=== PATIENT | male | born 1950 | race Caucasian/White ===

== ENCOUNTER 2021-08-09 15:47 | Inpatient (IN) ==
[2021-08-09] MEDS ORDERED: levoFLOXacin/D5W 750 MG/150 ML BAG IV STA (16:08)
[2021-08-09] MEDS ORDERED: SODIUM CHLORIDE 0.9% 1000ML 1,000 ML IV SCH ×2 (16:15→19:15)
--- NOTE | 2021-08-09 16:21 | Emergency Department Note ---
Impression & Plan Hypotension, Sepsis, ARF (acute renal failure), Acute confusion, Acute UTI, Bladder rupture, Osteomyelitis of left hip ED Provider Note NAME: GILBERT GARCIA AGE: 70 SEX: M : 1950 ARRIVES VIA: Ambulance INFORMANT: [Patient][family] ED PROVIDER(S): [Pierce Marin MD] CHIEF COMPLAINT: Lethargic HISTORY OF PRESENT ILLNESS: The patient is a 70-year-old male who presents to the ER with lethargy. The patient has been running a low blood pressure lately. The patient has fallen a few times but did not seem injured. The patient has been having increased pain in his left hip and the [facility] is considering placing him in a wheelchair. He did go for this appointment. His daughter states that the patient has an increased pain in the left hip [facility]. He has not eaten much, he has not had much to drink. He has been urinating quite frequently and sometimes, just a bit at a time. In the last 24 hours, he has been less responsive and seems groggy. He seemed thirsty. His mucous members are dry. He seemed to be having a harder time breathing. As the day progressed, the patient did not improve, the patient's daughter called EMS. The patient is vaccinated for COVID-19 x3, he has had a flu vaccine. He has chronic kidney disease. He has a chronic deformity to the right upper extremity. The patient is to be a DNR. Given the patient's confusion, no further history obtainable. REVIEW OF SYSTEMS: Unobtainable given the confusion and lethargy. PMHx/PSHx: See Below SOCIAL HISTORY: See Below. PHYSICAL EXAM: GENERAL: Patient is in significant distress. HEENT: No acute trauma, normocephalic atraumatic, mucous membranes markedly dry, no nasal congestion, no scleral icterus. There is dark blood dried on his lips. No obvious laceration. NECK: No stridor, no adenopathy, no meningismus, trachea is midline. LUNGS: Clear to auscultation bilaterally, no wheeze, no rhonchi, breath sounds equal. He appears to be in some mild to moderate respiratory distress. He has an increased respiratory rate. HEART: Without murmurs gallops or rubs, tachycardic, regular rhythm. Heart tones are distant. ABDOMEN: Soft, nontender, no hernias, no peritonitis. EXTREMITIES: No cyanosis, mild bilateral pedal edema. There is a chronic de formity to the right upper extremity with atrophy. NEUROLOGIC: Confused, lethargic, does move all extremities. SKIN: No jaundice, no diaphoresis. There is some mottling across the abdominal wall. DIFFERENTIAL DIAGNOSIS: Sepsis, UTI, pneumonia, renal or liver failure, COVID-19, influenza, metabolic abnormality, electrolyte abnormalities, cardiac sources, cellulitis, bacteremia, intracerebral event, toxicologic etiology, neurologic event, as well as other pathologies. EMERGENCY DEPARTMENT COURSE/PROCEDURES: ECG: Indication was lethargy and confusion. The ECG shows a sinus tachycardia with a rate of 129. There is no ST elevation, no PVCs. QTC is 433. Continuous Cardiac Monitoring: An order was placed for continuous cardiac monitoring. The monitor shows a rate of 113 with sinus tachycardia. Critical Care Note: I have personally spent 61 minutes of critical care time in the direct management of this patient. This includes bedside care, interpretation of diagnostic studies, and testing, discussion with consultants, patient, and family members, and other required patient management activities. This 61 minutes is in excess of all separately billable procedures. MEDICAL DECISION MAKING: There is a moderate leukocytosis consistent with infection. The patient is anemic. He has a history of anemia but his hemoglobin today is below his typ ical values. Platelet count is normal. INR is elevated at 1.3. PTT are is elevated at 2. ABG shows an acidosis with some mild CO2 retention. The bicarb was normal. Renal panel testing shows hyponatremia with a mild hyperkalemia. Acute renal failure was seen with a creatinine of 2.61. Lactic acid level is elevated consistent with infection/dehydration. LFTs were elevated consistent with possible shock liver. ECG showed a sinus tachycardia, no ischemia. Cardiac enzyme testing x1 is not consistent with acute cardiac injury. Procalcitonin level was quite elevated consistent with infection. Urinalysis showed blood and white cells consistent with infection. 4+ bacteria was seen. Covid, influenza and RSV testing returned negative. Chest x-ray did not show any obvious pneumonia or CHF. Brain CT showed no acute bleed or mass-effect. Abdominal and pelvis CT shows osteomyelitis with potential necrotizing fasciitis of the left hip. There was also air within the bladder and around the bladder consistent with bladder rupture. There was some hydronephrosis of the left kidney from a stone within the left renal pelvis. The patient was aggressively managed upon presentation. He was hypotensive on arrival, he was confused. He received 3 L of IV saline, 3 IVs were initiated. He received IV Protonix, IV Levaquin. The patient's blood pressure is somewhat improved. He is still confused. I spoke with the patient's daughter, the patient is a DNR. He is not to be intubated, comfort measures were of primary concern. I did speak with the case management team, I did speak with the on-call hospitalist. With the findings of potential necrotizing fasciitis and osteomyelitis of left hip, I consulted orthopedics. They felt the patient would need transfer if aggressive measures were to be undertaken. I did speak with urology regarding the potential bladder rupture and air within and around the bladder, they recommended a cystogram, the cystogram was ordered. The patient is in critical condition. He has sepsis, hypotension, acute renal failure. He may have a necrotizing fasciitis/osteomyelitis of left hip. He appears to have a bladder rupture. He likely will not survive this infection/hospitalization. The patient's daughter and family are considering whether or not they would want the patient transferred. Transfer was suggested by our consultants if aggre ssive measures were to be undertaken. 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 Hypertension Hypothyroidism Kidney stone states he has 2 stones and monitoring them Osteoarthritis Sleep apnea CPAP with oxygen- 3 liters Surgical History History of carpal tunnel surgery of left wrist History of esophagogastroduodenoscopy (EGD) History of excision of pilonidal cyst History of open reduction and internal fixation (ORIF) procedure right arm due to accident and only has partial movement arm/hand Hx of arthroscopy of left knee Hx of cholecystectomy Hx of cystoscopy laser litho and basket retrieval Hx of lithotripsy Social History Smoking Status: Former smoker Second Hand Exposure: No; Hx Alcohol Use: Yes Alcohol type: beer and hard liquor Hx Substance Use: No Preferred Language: Ivorian Communication Ability: Effective Tool Adjuster Required: No Beliefs That Will Affect Care: None Current Living Situation: Alone Feels Safe at Home: Yes Assistive Devices: Cane, CPAP, Denture - Upper, Glasses and Walker Allergies Allergies Allergy/AdvReac Type Severity Reaction Status Date / Time amoxicillin Allergy Intermediate Hives Verified 08/09/21 17:44 Penicillins Allergy Intermediate HIVES;RASH,THROAT Verified 08/09/21 17:44 SWELLING Home Meds Home Medications Medication Instructions Recorded Confirmed albuterol sulfate 90 mcg/actuation 2 puff INHALATION .Q4-6HR PRN 01/31/21 08/09/21 aerosol inhaler (Ventolin HFA) allopurinol 100 mg tablet 100 mg PO BID 01/31/21 08/09/21 aspirin 81 mg tablet,delayed 81 mg PO QAM 01/31/21 08/09/21 release cholecalciferol (vitamin D3) 25 25 mcg PO Q2D 01/31/21 08/09/21 mcg (1,000 unit) capsule (Vitamin D3) levothyroxine 75 mcg tablet 75 mcg PO QAM 01/31/21 08/09/21 lisinopril 20 mg tablet 20 mg PO QAM 01/31/21 08/09/21 metformin 500 mg tablet 500 mg PO QAM 01/31/21 08/09/21 tiotropium bromide 18 mcg capsule 1 cap INHALATION QAM 01/31/21 08/09/21 with inhalation device (Spiriva with HandiHaler) fluticasone 100 mcg-salmeterol 50 1 inh INHALATION BID 06/05/21 08/09/21 mcg/dose blistr powdr for inhalation (Wixela Inhub) furosemide 40 mg tablet 40 mg PO QAM 06/05/21 08/09/21 folic acid 800 mcg tablet 0.8 mg PO DAILY 08/09/21 08/09/21 omeprazole 20 mg capsule,delayed 20 mg PO DAILY 08/09/21 08/09/21 release pravastatin 40 mg tablet 20 mg PO DAILY 08/09/21 08/09/21 zinc 50 mg tablet 50 mg PO DAILY 08/09/21 08/09/21 Previous Rx's Medication Instructions Recorded hydrocodone 5 mg-acetaminophen 325 1 - 2 tab PO Q6H PRN #30 tab 06/11/21 mg tablet Results & Data (ED) Vital Signs Vital Signs - 24 hr 08/09/21 15:47 08/09/21 16:05 08/09/21 16:08 Temperature 37.8 C H Temperature Source Oral Pulse Rate 128 H 129 H Pulse Rate from SpO2 Sensor 129 H Pulse Rhythm Regular Respiratory Rate 22 26 H Respiratory Effort / Characteristics Non-Labored Spontaneous Respiratory Depth Normal Respiratory Pattern Regular Blood Pressure 68/39 L 67/42 L Blood Pressure Mean 48 50 Pulse Oximetry 76 L 97 99 Oxygen Delivery Method Room Air Nasal Cannula Nasal Cannula Oxygen Flow Rate 6 6 Sepsis Recent Fever Within 48 Hours No Sepsis New/Unexplained Change in Mental Status Yes Sepsis Action Taken by Nursing Physician Notified 08/09/21 16:23 08/09/21 16:28 08/09/21 16:30 Temperature Temperature Source Pulse Rate 128 H 126 H 127 H Pulse Rate from SpO2 Sensor 126 H 129 H Pulse Rhythm Respiratory Rate 17 32 H 34 H Respiratory Effort / Characteristics Respiratory Depth Respiratory Pattern Blood Pressure 84/53 L 92/56 L 81/53 L Blood Pressure Mean 63 68 62 Pulse Oximetry 99 95 Oxygen Delivery Method Oxygen Flow Rate Sepsis Recent Fever Within 48 Hours Sepsis New/Unexplained Change in Mental Status Sepsis Action Taken by Nursing 08/09/21 16:38 08/09/21 16:45 08/09/21 17:00 Temperature Temperature Source Pulse Rate 122 H 126 H Pulse Rate from SpO2 Sensor 122 H 126 H Pulse Rhythm Respiratory Rate 22 34 H 20 Respiratory Effort / Characteristics Spontaneous Respiratory Depth Respiratory Pattern Blood Pressure 84/49 L 74/42 L Blood Pressure Mean 60 52 Pulse Oximetry 99 100 100 Oxygen Delivery Method Nasal Cannula Oxygen Flow Rate 5 Sepsis Recent Fever Within 48 Hours Sepsis New/Unexplained Change in Mental Status Sepsis Action Taken by Nursing 08/09/21 17:08 08/09/21 17:13 08/09/21 17:16 Temperature Temperature Source Pulse Rate 122 H Pulse Rate from SpO2 Sensor 119 H 123 H Pulse Rhythm Respiratory Rate 22 32 H Respiratory Effort / Characteristics Spontaneous Respiratory Depth Respiratory Pattern Blood Pressure 76/51 L 75/42 L Blood Pressure Mean 59 53 Pulse Oximetry 99 99 99 Oxygen Delivery Method Nasal Cannula Oxygen Flow Rate 5 Sepsis Recent Fever Within 48 Hours Sepsis New/Unexplained Change in Mental Status Sepsis Action Taken by Nursing 08/09/21 17:38 08/09/21 18:00 01/01/22 18:30 Temperature Temperature Source Pulse Rate 123 H 123 H Pulse Rate from SpO2 Sensor 122 H 119 H Pulse Rhythm Respiratory Rate 25 H 25 H 34 H Respiratory Effort / Characteristics Spontaneous Spontaneous Spontaneous Respiratory Depth Respiratory Pattern Blood Pressure 106/50 L 84/56 L Blood Pressure Mean 68 65 Pulse Oximetry 100 99 96 Oxygen Delivery Method Nasal Cannula Nasal Cannula Nasal Cannula Oxygen Flow Rate 4 4 4 Sepsis Recent Fever Within 48 Hours Sepsis New/Unexplained Change in Mental Status Sepsis Action Taken by Assisted Medications Current Medication List: was personally reviewed by me Laboratory Data Attestation: I reviewed the patient's lab results. Result diagrams: 08/09/21 16:23 08/09/21 16:23 Lab Results 08/09/21 08/09/21 08/09/21 Range/Units 16:20 16:23 16:23 WBC 18.71 H (4.8-10.8) K/uL RBC 3.51 L (4.7-6.1) M/uL Hgb 10.5 L (14.0-18.0) g/dL Hct 32.2 L (42-52) % MCV 91.7 (80-100) fL MCH 29.9 (25-34) pg MCHC 32.6 (32-36) g/dL RDW Std Deviation 50.6 H (36.4-46.3) fL RDW Coeff of [place]en[place] 15.0 H (11.5-14.5) % Plt Count 151 (130-400) K/uL MPV 11.5 H (7.4-10.4) fL Immature Gran % (Auto) 0.3 % Neut % (Auto) 87.5 % Lymph % (Auto) 5.8 % [place] % (Auto) 6.3 % Eos % (Auto) 0.0 % Baso % (Auto) 0.1 % Neut # (Auto) 16.38 H (1.4-6.5) K/uL Lymph # (Auto) 1.08 L (1.2-3.4) K/uL [place] # (Auto) 1.18 H (0.11-0.59) K/uL Eos # (Auto) 0.00 (0-0.5) K/uL Baso # (Auto) 0.01 (0-0.2) K/uL Immature Gran # (Auto) 0.06 H (0.00-0.02) K/uL PT 12.5 H (9.0-12.0) Seconds INR 1.3 H (0.9-1.1) APTT 53.6 H* (21.0-31.0) Seconds PTT Ratio 2.0 ABG pH (7.35-7.45) ABG pCO2 (35-46) mmHg ABG pO2 (80-95) mmHg ABG HCO3 (19-24) mmol/L ABG O2 Saturation (90-95) % ABG Base Excess (-9-1.8) mEq/L Christopher Test (Pos) Barometric Pressure mm/Hg Oxygen Given Sodium (136-145) mmol/L Potassium (3.5-5.1) mmol/L Chloride (98-107) mmol/L Carbon Dioxide (21-32) mmol/L Anion Gap (3-11) BUN (7-18) mg/dl Creatinine (0.6-1.4) mg/dl Est Cr Clr Drug Dosing ml/min Est GFR ( Amer) ml/min Est GFR (Non-Af Amer) ml/min BUN/Creatinine Ratio (10-20) Glucose (70-99) mg/dl Lactate (0.4-2.0) mmol/L Calcium (8.5-10.1) mg/dl Magnesium (1.8-2.4) mg/dl Total Bilirubin (0.2-1) mg/dl AST (15-37) U/L ALT (12-78) Alkaline Phosphatase (45-117) U/L Troponin I (0-0.045) ng/ml Total Protein (6.4-8.2) gm/dl Albumin (3.4-5.0) gm/dl Globulin (2.5-4.0) gm/dl Albumin/Globulin Ratio (0.9-2) Procalcitonin (0-0.5) ng/ml Urine Color Brown Urine Appearance Cloudy A (Clear) Urine pH (4.5-7.5) Ur Specific [place] 1.024 (1.000-1.030) Urine Protein (Negative) Urine Glucose (UA) (Negative) Urine Ketones (Negative) Urine Blood (Negative) Urine Nitrite (Negative) Urine Bilirubin (Negative) Urine Urobilinogen (Negative) Ur Leukocyte Esterase (Negative) Urine RBC >30 H (0-4) /hpf Urine WBC >30 H (0-5) /hpf Ur Epithelial Cells 5-10 H (0-5) /lpf Urine Bacteria 4+ H (Negative) SARS-CoV-2 (PCR) (Negative) Influenza Type A (PCR) (Neg) Influenza Type B (PCR) (Neg) RSV (RT-PCR) (Neg) 08/09/21 08/09/21 08/09/21 Range/Units 16:23 16:23 16:23 WBC (4.8-10.8) K/uL RBC (4.7-6.1) M/uL Hgb (14.0-18.0) g/dL Hct (42-52) % MCV (80-100) fL MCH (25-34) pg MCHC (32-36) g/dL RDW Std Deviation (36.4-46.3) fL RDW Coeff of Keenan (11.5-14.5) % Plt Count (130-400) K/uL MPV (7.4-10.4) fL Immature Gran % (Auto) % Neut % (Auto) % Lymph % (Auto) % [place] % (Auto) % Eos % (Auto) % Baso % (Auto) % Neut # (Auto) (1.4-6.5) K/uL Lymph # (Auto) (1.2-3.4) K/uL [place] # (Auto) (0.11-0.59) K/uL Eos # (Auto) (0-0.5) K/uL Baso # (Auto) (0-0.2) K/uL Immature Gran # (Auto) (0.00-0.02) K/uL PT (9.0-12.0) Seconds INR (0.9-1.1) APTT (21.0-31.0) Seconds PTT Ratio ABG pH (7.35-7.45) ABG pCO2 (35-46) mmHg ABG pO2 (80-95) mmHg ABG HCO3 (19-24) mmol/L ABG O2 Saturation (90-95) % ABG Base Excess (-9-1.8) mEq/L Christopher Test (Pos) Barometric Pressure mm/Hg Oxygen Given Sodium 126 L (136-145) mmol/L Potassium 5.5 H (3.5-5.1) mmol/L Chloride 93 L (98-107) mmol/L Carbon Dioxide 25 (21-32) mmol/L Anion Gap 8.0 (3-11) BUN 62 H (7-18) mg/dl Creatinine 2.61 H (0.6-1.4) mg/dl Est Cr Clr Drug Dosing 28.8 ml/min Est GFR ( Amer) 27.4 ml/min Est GFR (Non-Af Amer) 23.6 ml/min BUN/Creatinine Ratio 23.9 H (10-20) Glucose 113 H (70-99) mg/dl Lactate 2.9 H* (0.4-2.0) mmol/L Calcium 8.9 (8.5-10.1) mg/dl Magnesium 1.8 (1.8-2.4) mg/dl Total Bilirubin 2.8 H (0.2-1) mg/dl AST 174 H (15-37) U/L ALT 36 (12-78) Alkaline Phosphatase 233 H D (45-117) U/L Troponin I < 0.015 (0-0.045) ng/ml Total Protein 6.9 (6.4-8.2) gm/dl Albumin 2.0 L (3.4-5.0) gm/dl Globulin 4.9 H (2.5-4.0) gm/dl Albumin/Globulin Ratio 0.4 L (0.9-2) Procalcitonin 32.78 H (0-0.5) ng/ml Urine Color Urine Appearance (Clear) Urine pH (4.5-7.5) Ur Specific [place] (1.000-1.030) Urine Protein (Negative) Urine Glucose (UA) (Negative) Urine Ketones (Negative) Urine Blood (Negative) Urine Nitrite (Negative) Urine Bilirubin (Negative) Urine Urobilinogen (Negative) Ur Leukocyte Esterase (Negative) Urine RBC (0-4) /hpf Urine WBC (0-5) /hpf Ur Epithelial Cells (0-5) /lpf Urine Bacteria (Negative) SARS-CoV-2 (PCR) (Negative) Influenza Type A (PCR) (Neg) Influenza Type B (PCR) (Neg) RSV (RT-PCR) (Neg) 08/09/21 08/09/21 Range/Units 16:24 19:10 WBC (4.8-10.8) K/uL RBC (4.7-6.1) M/uL Hgb (14.0-18.0) g/dL Hct (42-52) % MCV (80-100) fL MCH (25-34) pg MCHC (32-36) g/dL RDW Std Deviation (36.4-46.3) fL RDW Coeff of Keenan (11.5-14.5) % Plt Count (130-400) K/uL MPV (7.4-10.4) fL Immature Gran % (Auto) % Neut % (Auto) % Lymph % (Auto) % [place] % (Auto) % Eos % (Auto) % Baso % (Auto) % Neut # (Auto) (1.4-6.5) K/uL Lymph # (Auto) (1.2-3.4) K/uL [place] # (Auto) (0.11-0.59) K/uL Eos # (Auto) (0-0.5) K/uL Baso # (Auto) (0-0.2) K/uL Immature Gran # (Auto) (0.00-0.02) K/uL PT (9.0-12.0) Seconds INR (0.9-1.1) APTT (21.0-31.0) Seconds PTT Ratio ABG pH 7.29 L (7.35-7.45) ABG pCO2 47 H (35-46) mmHg ABG pO2 104 H (80-95) mmHg ABG HCO3 22 (19-24) mmol/L ABG O2 Saturation 97.4 H (90-95) % ABG Base Excess -4.6 (-9-1.8) mEq/L Christopher Test Pos (Pos) Barometric Pressure 723.7 mm/Hg Oxygen Given 4.5 L Sodium (136-145) mmol/L Potassium (3.5-5.1) mmol/L Chloride (98-107) mmol/L Carbon Dioxide (21-32) mmol/L Anion Gap (3-11) BUN (7-18) mg/dl Creatinine (0.6-1.4) mg/dl Est Cr Clr Drug Dosing ml/min Est GFR ( Amer) ml/min Est GFR (Non-Af Amer) ml/min BUN/Creatinine Ratio (10-20) Glucose (70-99) mg/dl Lactate (0.4-2.0) mmol/L Calcium (8.5-10.1) mg/dl Magnesium (1.8-2.4) mg/dl Total Bilirubin (0.2-1) mg/dl AST (15-37) U/L ALT (12-78) Alkaline Phosphatase (45-117) U/L Troponin I (0-0.045) ng/ml Total Protein (6.4-8.2) gm/dl Albumin (3.4-5.0) gm/dl Globulin (2.5-4.0) gm/dl Albumin/Globulin Ratio (0.9-2) Procalcitonin (0-0.5) ng/ml Urine Color Urine Appearance (Clear) Urine pH (4.5-7.5) Ur Specific [place] (1.000-1.030) Urine Protein (Negative) Urine Glucose (UA) (Negative) Urine Ketones (Negative) Urine Blood (Negative) Urine Nitrite (Negative) Urine Bilirubin (Negative) Urine Urobilinogen (Negative) Ur Leukocyte Esterase (Negative) Urine RBC (0-4) /hpf Urine WBC (0-5) /hpf Ur Epithelial Cells (0-5) /lpf Urine Bacteria (Negative) SARS-CoV-2 (PCR) NEGATIVE (Negative) Influenza Type A (PCR) Negative (Neg) Influenza Type B (PCR) Negative (Neg) RSV (RT-PCR) Negative (Neg) Administered Medications Discontinued Medications Sodium Chloride (Nss 1000ml) 1,000 mls @ 999 mls/hr IV .Q1H1M SVETLANA Stop: 08/09/21 17:15 Last Infusion: 08/09/21 17:06 Dose: 0 mls/hr Documented by: [id number] Admin: 08/09/21 16:30 Dose: 999 mls/hr Documented by: [id number] Levofloxacin/Dextrose (Levaquin/D5w) 750 mg in 150 mls @ 100 mls/hr IV NOW STA Stop: 08/09/21 17:37 Last Infusion: 08/09/21 18:42 Dose: 0 mls/hr Documented by: [id number] Admin: 08/09/21 16:45 Dose: 100 mls/hr Documented by: [id number] Pantoprazole Sodium 80 mg/ (Dextrose) 100 mls @ 400 mls/hr IV ONE STA Stop: 08/09/21 16:52 Last Infusion: 08/09/21 18:43 Dose: 0 mls/hr Documented by: [id number] Admin: 08/09/21 17:50 Dose: 400 mls/hr Documented by: [id number] Sodium Chloride (Nss 1000ml) 1,000 mls @ 999 mls/hr IV .Q1H1M ONE Stop: 08/09/21 18:00 Last Infusion: 08/09/21 18:43 Dose: 0 mls/hr Documented by: [id number] Admin: 08/09/21 17:06 Dose: 999 mls/hr Documented by: [id number] Sodium Chloride (Nss 1000ml) 1,000 mls @ 999 mls/hr IV .Q1H1M ONE Stop: 08/09/21 18:12 Last Infusion: 08/09/21 18:43 Dose: 0 mls/hr Documented by: [id number] Admin: 08/09/21 17:50 Dose: 999 mls/hr Documented by: [id number] Imaging Data Radiologist's Impression: Abdomen/Pelvis CT 08/09/21 16:[address] WITHOUT CONTRAST CT DOSE: 1425.66 mGy.cm HISTORY: Acute lower abdominal pain status post fall poss urinary obstruction TECHNIQUE: Multiaxial CT images of the abdomen and pelvis were performed without contrast. A dose lowering technique was utilized adhering to the principles of ALARA. COMPARISON STUDY: Chest radiograph of same day FINDINGS: Trace pleural effusions. Mild bibasilar bronchial wall thickening with subsegmental opacities suggestive of probable atelectasis. The study is limited secondary to upper extremity positioning, lack of IV contrast and respiratory motion artifact. The unenhanced spleen is enlarged measuring up to 16.5 cm in length. Unremarkable pancreas and adrenal glands. Cholecystectomy. Marginal nodularity of the liver suggestive of cirrhosis. Calcified granulomata of the right hepatic lobe. Hepatic steatosis. Probable cyst of the superior pole right kidney measures 9 mm. There are a few nonobstructing calculi of the inferior pole right kidney measuring up to 4 mm. 1.6 cm calculus of the left renal pelvis results in mild hydronephrosis. There are a few additional nonobstructing calculi left kidney measuring up to 1.2 cm. Small amount of air is noted within the left renal collecting system and proximal left ureter. A Sim catheter is noted within the urinary bladder which is filled with air. Extraluminal air surrounds the urinary bladder. The tip of the catheter tents the anterior urinary bladder dome. Mild perivesicular stranding is noted in addition to mild prostamegaly. Atherosclerosis of the aorta. No adenopathy. There is also within the left femoral veins. There is no bowel obstruction or bowel wall thickening. Colonic diverticulosis without acute diverticulitis. Normal appendix. 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 Osseous erosions with bony destruction involves the left femoral acetabular joints resolving in associated subluxation. Numerous bone fragments are noted along the superior margin of the left hip with adjacent periostitis. Osseous necrosis is noted with considerable amount of air within the proximal left hip medullary space and also within the medullary space of the left acetabulum extending into the superior and inferior pubic rami and ischium. Periostitis involves the posterior aspect of the left iliac wing with ill-defined cortical lucency of the anterior iliac bone (image [id number]). Deep tissue air is noted within the complex left hip joint effusion extending into the adjacent gluteal and proximal thigh musculature compatible with gas forming organism. Ill-defined sclerosis involves the S1 vertebral segment should be evaluated on follow-up to exclude additional site of osteomyelitis. IMPRESSION: 1. Left hip septic arthropathy with considerable osteomyelitis/bone necrosis of the left acetabulum, left iliac bone and proximal left femur results in articular bony destruction with femoral acetabular subluxation. Additional air within the medullary space of the ischium, superior and inferior pubic rami and partially imaged diaphyseal left femur is suggestive of additional osteonecrosis.Urgent orthopedic surgical consultation is needed. 2. Heterogeneous enlargement with heterogeneity of the left needle loom operator internus, gluteal and proximal left thigh musculature is suggestive of associated myositis and/or myonecrosis. 3. A Sim catheter is in place with an air-filled urinary bladder. A large amount of perivesicular air is compatible with an acute urinary bladder wall injury. 4. Mild left-sided hydronephrosis secondary to a 1.6 cm calculus of the left renal pelvis. 5. Nonobstructing bilateral nephrolithiasis. 6. Cirrhotic liver. 7. Trace pleural effusions. 8. Additional findings as above. ACT 112: Negative or not required by law. The above report was generated using voice recognition software. It may contain grammatical, syntax or spelling errors. Electronically signed by: Doe Atkinson M.D. 08/09/2021 6:09 PM Chest X-Ray 08/09/21 16:08 XR chest 1V portable HISTORY: 70 years-old Male SEPSIS acute sepsis COMPARISON: Chest radiograph 01/31/2021 TECHNIQUE: Portable AP view of the chest FINDINGS: Cardiomediastinal and hilar silhouettes are within normal limits. No pneumo thorax, large pleural effusion or overt pulmonary edema. There are subtle subsegmental opacities of the left lung base. Mild right hemidiaphragmatic elevation. Degenerative changes of the shoulders and spine. Healed chronic right-sided rib fractures. Mild subcutaneous edema of the left clavicular ti ssues with question deep tissue air versus artifact surrounding the right shoulder. IMPRESSION: 1. Mild left lung base opacities may represent atelectasis versus pneumonitis. 2. Trace subcutaneous emphysema of the left supraclavicular tissues with a rtifact versus deep tissue air superior to the right shoulder. Correlate with physical exam findings. ACT 112: Negative or not required by law. The above report was generated using voice recognition software. It may contain grammatical, syntax or spelling errors. Electronically signed by: Doe Atkinson M.D. 08/09/2021 5:[address] 08/09/21 16:08 CT head/brain wo con CLINICAL HISTORY: 70 years-old Male with fall, confusion. Acute head injury status post fall. TECHNIQUE: Multiple axial CT images of the head were obtained without contrast. A dose lowering technique was utilized adhering to the principles of ALARA. CT DOSE: 884.08 mGy.cm COMPARISON: Head CT 02/01/2021 FINDINGS: No acute intracranial hemorrhage, midline shift, intracranial mass, hydrocephalus, territorial ischemia or abnormal extra-axial collection. Mild involutional changes. White matter hypodensities suggest chronic microvascular ischemic disease. The calvarium is intact. The paranasal sinuses, mastoid air cells, and middle ear cavities are clear. IMPRESSION: No acute intracranial abnormality or calvarial fracture. ACT 112: Negative or not required by law. The above report was generated using voice recognition software. It may contain grammatical, syntax or spelling errors. Electronically signed by: Doe Atkinson M.D. 08/09/2021 5:39 PM Discharge Plan Visit Data Chief Complaint: Lethargic ED Provider: Pierce Marin Discharge Problem: Hypotension, Sepsis, ARF (acute renal failure), Acute confusion, Acute UTI, Bladder rupture, Osteomyelitis of left hip Patient Disposition: Admitted As Inpatient Condition: Critical Forms Stand Alone Forms: My [facility] Prescriptions Prescriptions: No Action furosemide 40 mg Tablet 40 mg PO QAM RF: 0 fluticasone propion-salmeterol [Wixela Inhub] 100-50 mcg/dose Blister With Device 1 inh INHALATION BID RF: 0 hydrocodone-acetaminophen 5-325 mg tablet 1 - 2 tab PO Q6H PRN (Reason: pain) Qty: 30 RF: 0 pravastatin 40 mg Tablet 20 mg PO DAILY RF: 0 zinc 50 mg Tablet 50 mg PO DAILY RF: 0 omeprazole 20 mg Capsule,Delayed Release(Dr/Ec) 20 mg PO DAILY RF: 0 folic acid 800 mcg Tablet 0.8 mg PO DAILY RF: 0 metformin 500 mg Tablet 500 mg PO QAM RF: 0 lisinopril 20 mg Tablet 20 mg PO QAM RF: 0 allopurinol 100 mg Tablet 100 mg PO BID RF: 0 aspirin 81 mg Tablet,Delayed Release (Dr/Ec) 81 mg PO QAM RF: 0 levothyroxine 75 mcg Tablet 75 mcg PO QAM RF: 0 albuterol sulfate [Ventolin HFA] 90 mcg/actuation Hfa Aerosol Inhaler 2 puff INHALATION .Q4-6HR PRN (Reason: Wheezing) RF: 0 cholecalciferol (vitamin D3) [Vitamin D3] 25 mcg (1,000 unit) Capsule 25 mcg PO Q2D RF: 0 Spiriva with HandiHaler 18 mcg Capsule, W/Inhalation Device 1 cap INHALATION QAM RF: 0 Referrals Referrals: Jazlyn John MD [Primary Care Provider] - Discharge Problem: Hypotension Qualifiers: Hypotension type: unspecified hypotension type Qualified Code(s): I95.9 - Hypotension, unspecified Sepsis Qualifiers: Sepsis type: sepsis due to unspecified organism Sepsis acute organ dysfunction status: with acute organ dysfunction Severe sepsis acute organ dysfunction type: acute renal failure Acute renal failure type: unspecified Severe sepsis shock status: with septic shock Qualified Code(s): A41.9 - Sepsis, unspecified organism ARF (acute renal failure) Qualifiers: Acute renal failure type: unspecified Qualified Code(s): N17.9 - Acute kidney failure, unspecified
[2021-08-09 16:30] LABS: Hematocrit (blood only) 32.2 % (42-52); Hemoglobin 10.5 g/dL (14.0-18.0); Mean Corpuscular Hemoglobin 29.9 pg (25-34); Mean Corpuscular Hgb Conc 32.6 g/dL (32-36); Mean Corpuscular Volume 91.7 fL (80-100); Mean Platelet Volume 11.5 fL (7.4-10.4); Platelet Count 151 K/uL (130-400); RDW Standard Deviation 50.6 fL (36.4-46.3); Red Blood Count 3.51 M/uL (4.7-6.1); White Blood Count 18.71 K/uL (4.8-10.8)
[2021-08-09] MEDS ORDERED: PANTOprazole 80 MG in DEXTROSE 5% 100 ML IV STA (16:38)
[2021-08-09 16:46] LABS: Basophils # (auto) 0.01 K/uL (0-0.2); Basophils % (auto) 0.1 %; Immature Granulocytes # (auto) 0.06 K/uL (0.00-0.02); Immature Granulocytes % (auto) 0.3 %; Lymphocytes # (auto) 1.08 K/uL (1.2-3.4); Lymphocytes % (auto) 5.8 %; Monocytes # (auto) 1.18 K/uL (0.11-0.59); Monocytes % (auto) 6.3 %; Neutrophils # (auto) 16.38 K/uL (1.4-6.5); Neutrophils % (auto) 87.5 %
[2021-08-09 16:48] LABS: Alanine Aminotransferase 36 (12-78); Aspartate Aminotransferase 174 U/L (15-37); BUN Creatinine Ratio 23.9 (10-20); Blood Urea Nitrogen 62 mg/dl (7-18); Calcium 8.9 mg/dl (8.5-10.1); Carbon Dioxide 25 mmol/L (21-32); Chloride 93 mmol/L (98-107); Creatinine Clr Calc Pharmacy 28.8 ml/min; Est GFR (African American) 27.4 ml/min; Est GFR (Non-African American) 23.6 ml/min; Glucose 113 mg/dl (70-99); Magnesium 1.8 mg/dl (1.8-2.4); Potassium 5.5 mmol/L (3.5-5.1); Sodium 126 mmol/L (136-145)
[2021-08-09 16:52] LABS: INR 1.3 (0.9-1.1); Prothrombin Time 12.5 Seconds (9.0-12.0)
[2021-08-09 16:53] LABS: Albumin Globulin Ratio 0.4 (0.9-2); Alkaline Phosphatase 233 U/L (45-117); Bilirubin,Total 2.8 mg/dl (0.2-1); Globulin 4.9 gm/dl (2.5-4.0); Total Protein 6.9 gm/dl (6.4-8.2); Troponin I < 0.015 ng/ml (0-0.045)
[2021-08-09 16:58] LABS: Partial Thromboplastin Time 53.6 Seconds (21.0-31.0)
[2021-08-09] MEDS ORDERED: SODIUM CHLORIDE 0.9% 1000ML 1,000 ML IV ONE ×2 (17:00→17:12)
--- NOTE | 2021-08-09 17:06 | XRay Report ---
XR chest 1V portable HISTORY: 70 years-old Male SEPSIS acute sepsis COMPARISON: Chest radiograph 01/31/2021 TECHNIQUE: Portable AP view of the chest FINDINGS: Cardiomediastinal and hilar silhouettes are within normal limits. No pneumothorax, large pleural effu royal or overt pulmonary edema. There are subtle subsegmental opacities of the left lung base. Mild ri ght hemidiaphragmatic elevation. Degenerative changes of the shoulders and spine. Healed chronic righ t-sided rib fractures. Mild subcutaneous edema of the left clavicular tissues with question deep tiss ue air versus artifact surrounding the right shoulder. IMPRESSION: 1. Mild left lung base opacities may represent atelectasis versus pneumonitis. 2. Trace subcutaneous emphysema of the left supraclavicular tissues with artifact versus deep tissue air superior to the right shoulder. Correlate with physical exam findings. ACT 112: Negative or not required by law. The above report was generated using voice recognition software. It may contain grammatical, syntax o r spelling errors. Electronically signed by: Doe Atkinson M.D. 08/09/2021 5:04 PM
[2021-08-09 17:13] LABS: Appearance Urine Cloudy (Clear); Color Urine Brown; Specific Gravity Urine 1.024 (1.000-1.030)
[2021-08-09 17:18] LABS: Bacteria Urine 4+ (Negative); RBC Urine >30 /hpf (0-4); WBC Urine >30 /hpf (0-5)
[2021-08-09 17:29] LABS: Influenza A virus by PCR Negative (Neg); Influenza B virus by PCR Negative (Neg); RSV by PCR Negative (Neg); SARS CoV2 RNA(COVID-19) InHosp NEGATIVE (Negative)
--- NOTE | 2021-08-09 17:41 | CT Scan Report ---
CT head/brain wo con CLINICAL HISTORY: 70 years-old Male with fall, confusion. Acute head injury status post fall. TECHNIQUE: Multiple axial CT images of the head were obtained without contrast. A dose lowering tech nique was utilized adhering to the principles of ALARA. CT DOSE: 884.08 mGy.cm COMPARISON: Head CT 02/01/2021 FINDINGS: No acute intracranial hemorrhage, midline shift, intracranial mass, hydrocephalus, territorial ischem ia or abnormal extra-axial collection. Mild involutional changes. White matter hypodensities suggest chronic microvascular ischemic disease. The calvarium is intact. The paranasal sinuses, mastoid air cells, and middle ear cavities are clear . IMPRESSION: No acute intracranial abnormality or calvarial fracture. ACT 112: Negative or not required by law. The above report was generated using voice recognition software. It may contain grammatical, syntax o r spelling errors. Electronically signed by: Doe Atkinson M.D. 08/09/2021 5:39 PM
--- NOTE | 2021-08-09 18:10 | CT Scan Report ---
ABDOMEN AND PELVIS CT WITHOUT CONTRAST CT DOSE: 1425.66 mGy.cm HISTORY: Acute lower abdominal pain status post fall poss urinary obstruction TECHNIQUE: Multiaxial CT images of the abdomen and pelvis were performed without contrast. A dose lo wering technique was utilized adhering to the principles of ALARA. COMPARISON STUDY: Chest radiograph of same day FINDINGS: Trace pleural effusions. Mild bibasilar bronchial wall thickening with subsegmental opaciti es suggestive of probable atelectasis. The study is limited secondary to upper extremity positioning, lack of IV contrast and respiratory motion artifact. The unenhanced spleen is enlarged measuring up to 16.5 cm in length. Unremarkable pancreas and adrenal glands. Cholecystectomy. Marginal nodularity of the liver suggestive of cirrhosis. Calcified granulomata of the right hepatic lobe. Hepatic steato sis. Probable cyst of the superior pole right kidney measures 9 mm. There are a few nonobstructing calculi of the inferior pole right kidney measuring up to 4 mm. 1.6 cm calculus of the left renal pelvis res ults in mild hydronephrosis. There are a few additional nonobstructing calculi left kidney measuring up to 1.2 cm. Small amount of air is noted within the left renal collecting system and proximal left ureter. A Sim catheter is noted within the urinary bladder which is filled with air. Extraluminal a ir surrounds the urinary bladder. The tip of the catheter tents the anterior urinary bladder dome. Mi ld perivesicular stranding is noted in addition to mild prostamegaly. Atherosclerosis of the aorta. N o adenopathy. There is also within the left femoral veins. There is no bowel obstruction or bowel wall thickening. Colonic diverticulosis without acute divertic ulitis. Normal appendix. 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 Osseous erosions with bony destruction involves the left femoral acetabular joints resolving in asso ciated subluxation. Numerous bone fragments are noted along the superior margin of the left hip with adjacent periostitis. Osseous necrosis is noted with considerable amount of air within the proximal l eft hip medullary space and also within the medullary space of the left acetabulum extending into the superior and inferior pubic rami and ischium. Periostitis involves the posterior aspect of the left iliac wing with ill-defined cortical lucency of the anterior iliac bone (image [id number]). Deep tissue air is noted within the complex left hip joint effusion extending into the adjacent gluteal and proximal thigh musculature compatible with gas forming organism. Ill-defined sclerosis involves the S1 vertebr al segment should be evaluated on follow-up to exclude additional site of osteomyelitis. IMPRESSION: 1. Left hip septic arthropathy with considerable osteomyelitis/bone necrosis of the left acetabulum, left iliac bone and proximal left femur results in articular bony destruction with femoral acetabular subluxation. Additional air within the medullary space of the ischium, superior and inferior pubic r ami and partially imaged diaphyseal left femur is suggestive of additional osteonecrosis.Urgent ortho pedic surgical consultation is needed. 2. Heterogeneous enlargement with heterogeneity of the left operator ground based air defence internus, gluteal and proximal l eft thigh musculature is suggestive of associated myositis and/or myonecrosis. 3. A Sim catheter is in place with an air-filled urinary bladder. A large amount of perivesicular a ir is compatible with an acute urinary bladder wall injury. 4. Mild left-sided hydronephrosis secondary to a 1.6 cm calculus of the left renal pelvis. 5. Nonobstructing bilateral nephrolithiasis. 6. Cirrhotic liver. 7. Trace pleural effusions. 8. Additional findings as above. ACT 112: Negative or not required by law. The above report was generated using voice recognition software. It may contain grammatical, syntax o r spelling errors. Electronically signed by: Doe Atkinson M.D. 08/09/2021 6:09 PM
[2021-08-09 19:19] LABS: Base Excess ABG -4.6 mEq/L (-9-1.8); HCO3 ABG 22 mmol/L (19-24); Oxygen Saturation ABG 97.4 % (90-95); PCO2 ABG 47 mmHg (35-46); PO2 ABG 104 mmHg (80-95); pH ABG 7.29 (7.35-7.45)
[2021-08-09 19:20] LABS: Allen Test Pos (Pos)
--- NOTE | 2021-08-09 20:12 | History & Physical Report ---
Date of Service August 09, 2021 Assessment & Plan (1) Sepsis: (2) Hypotension: Plan: Possible related to septic arthritis/osteomyelitis Met sepsis criteria on admission with elevated lactic acid at 2.9, WBC 18.7, tachycardia, elevated procalcitonin at 32.[address] abd/pelvis showed Left hip septic arthropathy with considerable osteomyelitis/bone necrosis of the left acetabulum, left iliac bone and proximal left femur results in articular bony destruction with femoral acetabular subluxation. Additional air within the medullary space of the ischium, superior and inferior pubic rami and partially imaged diaphyseal left femur is suggestive of additional osteonecrosis Heterogeneous enlargement with heterogeneity of the left grinder operator tool internus, gluteal and proximal left thigh musculature is suggestive of associated myositis and/or myonecrosis. in the ER Received aggressive IV fluid with 30 mL/kg ( total of 3.5 L of IV NSS bolus given) and IV levaquin BP improved after the IV fluid bolus Blood culture and urine culture collected in the ER Case discussed with orthopedic Dr. Martino. After he reviewed the CT abdomen/pelvis that suspicious for gas-forming organism Ortho recommended to transfer to tertiary center for urgent surgical procedure Spoke to daughter at bedside about transfer to tertiary center to undergo extensive left hip surgery Daughter understand if pt remains at [facility] that he will because he will go to septic shock Daughter said that she would discuss it with the family before making any decision about transfer since she does not want any heroic management Daughter said that her and the rest of the family decided to keep him at [facility] since they don't think he would survive the procedure and pt does not want to be on mechanical ventilation. I again informed the daughter if he does not transfer to a tertiary care that he will . final decision from the daughter to stay at [facility] and if he deteriorates or his worsening to transition to comfort care. Continue IV fluid maintenance at 100 cc/hr Meropenem started and will continue IV Levaquin for now We will follow urine and blood culture result Orthopedic consult Will repeat Lactic acid We will check inflammatory markers such as ESR and CRP in a.m. We will monitor CBC and procalcitonin level in a.m. Hypoxia Chest x-ray showed mild left lung base opacities may represent atelectasis versus pneumonitis. COVID-19, RSV, influenza A and B are negative ABG showed pH 7.29/PCO2 47/PO2 104/ Currently on 4 L nasal cannula On IV Levaquin and meropenem Acute kidney failure Likely due to sepsis and dehydration CT abdomen/pelvis sowed a becerril catheter is in place with an air-filled urinary bladder. A large amount of perivesicular air is compatible with an acute urinary bladder wall injury. Mild left-sided hydronephrosis secondary to a 1.6 cm calculus of the left renal pelvis. Lisinopril, Metformin and furosemide on hold Continue to avoid nephrotoxic agent Continue IV fluid Monitor BMP Left-sided hydronephrosis Urinary bladder wall injury CT showed large amount of perivesicular air is compatible with an acute urinary bladder wall injury. Mild left-sided hydronephrosis secondary to a 1.6 cm calculus of the left renal pelvis. ER physician discussed the case with the urology on-call recommend to get a cystogram Urology consult Encephalopathy Lethargy Likely due to sepsis CT head showed no acute intracranial abnormality No focal neuro deficit Continue monitor closely Abnormal UA UA positive for WBC and bacteria Received IV Levaquin in the ER Started on meropenem and continue Levaquin We will follow urine culture and blood culture Hypotension Related to sepsis Received IV fluid bolus in the ER Continue to hold BP meds Monitor BP closely GUILLERMO Continue CPAP at night DVT prophylaxis Heparin subcu CODE STATUS DNR Daughter does not want any heroic management If patient deteriorates, plan to transition to comfort care as per daughter History of Present Illness Chief Complaint: Lethargy/Left hip pain Primary Care Provider: Jazlyn John MD 70-year-old male with PMH of COPD, HTN, Hypothyroidism, gout, GUILLERMO, Left hip replacement 3 months ago who presents to the ER with worsening lethargy.History obtained from daughter at bedside. As per daughter in the last 48hrs pt has been very lethargy and became less response. Daughter said that pt had left knee surgery done 3 months ago that helped with his left knee pain. Daughter said that pt has been having left hip pain for the past 2 years. He was seen by [facility] that referred him to Orthopedic in [place]. Daughter said that due to COVID 19 they could not get the surgery schedule because he would have to stay in the hopital overnight after the procedure. Daughter said ortho in [place] recommended to call back in 3 months to try to get the procedure schedule. Ashok padgett said they were at the [facility] to get eval for wheelchair. Daughter said after the appointment, his left hip pain has got worse. She said patient rolled out of bed to the ground on Wednesday. daughter said that pt has been having increase urinary frequency. His symptoms started worsening last night where he became very lethargy, less responsive and his speech was gargled with difficulty to understand. He was able to deny any chest pain, palpitation and SOB. EMS was called as he became worsening. In the ER he was found to be hypotensive with systolic BP in 60's, elevated lactic acid, creatinine, WBC with procalcitonin 32.7. GENERAL: No fever or chills, easy fatigue, loss of appetite, or significant weight change. Allergies Allergy/AdvReac Type Severity Reaction Status Date / Time amoxicillin Allergy Intermediate Hives Verified 08/09/21 17:44 Penicillins Allergy Intermediate HIVES;RASH,THROAT Verified 08/09/21 17:44 SWELLING Home Medications Medication Instructions Recorded Confirmed Type albuterol sulfate 90 mcg/actuation 2 puff INHALATION .Q4-6HR PRN 01/31/21 08/09/21 History aerosol inhaler (Ventolin HFA) allopurinol 100 mg tablet 100 mg PO BID 01/31/21 08/09/21 History aspirin 81 mg tablet,delayed 81 mg PO QAM 01/31/21 08/09/21 History release cholecalciferol (vitamin D3) 25 25 mcg PO Q2D 01/31/21 08/09/21 History mcg (1,000 unit) capsule (Vitamin D3) levothyroxine 75 mcg tablet 75 mcg PO QAM 01/31/21 08/09/21 History lisinopril 20 mg tablet 20 mg PO QAM 01/31/21 08/09/21 History metformin 500 mg tablet 500 mg PO QAM 01/31/21 08/09/21 History tiotropium bromide 18 mcg capsule 1 cap INHALATION QAM 01/31/21 08/09/21 History with inhalation device (Spiriva with HandiHaler) fluticasone 100 mcg-salmeterol 50 1 inh INHALATION BID 06/05/21 08/09/21 History mcg/dose blistr powdr for inhalation (Wixela Inhub) furosemide 40 mg tablet 40 mg PO QAM 06/05/21 08/09/21 History hydrocodone 5 mg-acetaminophen 325 1 - 2 tab PO Q6H PRN #30 tab 06/11/21 08/09/21 Rx mg tablet folic acid 800 mcg tablet 0.8 mg PO DAILY 08/09/21 08/09/21 History omeprazole 20 mg capsule,delayed 20 mg PO DAILY 08/09/21 08/09/21 History release pravastatin 40 mg tablet 20 mg PO DAILY 08/09/21 08/09/21 History zinc 50 mg tablet 50 mg PO DAILY 08/09/21 08/09/21 History 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 Hypertension Hypothyroidism Kidney stone states he has 2 stones and monitoring them Osteoarthritis Sleep apnea CPAP with oxygen- 3 liters Surgical History History of carpal tunnel surgery of left wrist History of esophagogastroduodenoscopy (EGD) History of excision of pilonidal cyst History of open reduction and internal fixation (ORIF) procedure right arm due to accident and only has partial movement arm/hand Hx of arthroscopy of left knee Hx of cholecystectomy Hx of cystoscopy laser litho and basket retrieval Hx of lithotripsy Social History Smoking Status: Former smoker Second Hand Exposure: No; Hx Alcohol Use: Yes Alcohol type: beer and hard liquor Hx Substance Use: No Preferred Language: Danish Communication Ability: Effective Spout Liner Required: No Beliefs That Will Affect Care: None Current Living Situation: Alone Feels Safe at Home: Yes Assistive Devices: Cane, CPAP, Denture - Upper, Glasses and Walker Review of Systems Review of Systems: All systems reviewed & are unremarkable except as noted in HPI & below Physical Exam Physical Exam: General- acute distress Head- atraumatic Eyes- PERRL, EOMI, ENT- oropharynx clear Neck- supple, no JVD Lungs- diminished BS Heart- Tachycardia, no murmur Abdomen- normal bowel sounds Extremities- no calf tenderness Neuro- Confused, lethargic, does move all extremities.speech gargle Skin- warm & dry Results & Data Results & Data ([facility]) Vital Signs (Past 12 Hours) Vital Signs Temp Pulse Resp BP Pulse Ox 08/09/21 18:30 123 H 34 H 84/56 L 96 08/09/21 18:00 25 H 99 08/09/21 17:38 123 H 25 H 106/50 L 100 08/09/21 17:16 75/42 L 99 08/09/21 17:13 122 H 32 H 76/51 L 99 08/09/21 17:08 22 99 08/09/21 17:00 126 H 20 74/42 L 100 08/09/21 16:45 122 H 34 H 84/49 L 100 08/09/21 16:38 22 99 08/09/21 16:30 127 H 34 H 81/53 L 95 08/09/21 16:28 126 H 32 H 92/56 L 99 08/09/21 16:23 128 H 17 84/53 L 08/09/21 16:08 99 08/09/21 16:05 129 H 26 H 67/42 L 97 08/09/21 15:47 37.8 C H 128 H 22 68/39 L [address] pelvis wo con HISTORY: 70 years-old Male bladder rupture, cystogram via becerril follow-up study in a patient with possible urinary bladder rupture COMPARISON: CT abdomen and pelvis of same day at 5:29 PM TECHNIQUE: Multiple axial CT images of the pelvis were obtained without the use of IV contrast. A total of 400 mL Cysto-Conray was injected through the patient's Becerril catheter into the urinary bladder and images were then obtained post injection. A dose lowering technique was used consistent with the principals of JOHN. FINDINGS: Technologist reports that is contrast was injected into the urinary bladder it flowed outside the catheter into the urethra and subsequently no more contrast was able to be injected. Partial distention of the urinary bladder with Becerril catheter in place. There is a small amount of air within the urinary bladder lumen. Air is present within the urinary bladder wall extending into the perivesicular tissues, notably into the space of Retzius. There is symmetric progressive accumulation of contrast within the posterior posterolateral periprosthetic tissues as seen on image 190 of series 5. There is prostamegaly with urinary bladder wall thickening. No definite focal area of urinary bladder wall injury identified. No spilling of contrast into the peritoneal space. There is no bowel obstruction or bowel wall thickening. Colonic diverticulosis without acute diverticulitis. Normal appendix. 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 Osseous erosions with bony destruction involves the left femoral acetabular joints resolving in associated subluxation. Numerous bone fragments are noted along the superior margin of the left hip with adjacent periostitis. Osseous necrosis is noted with considerable amount of air within the proximal left hip medullary space and also within the medullary space of the left acetabulum extending into the superior and inferior pubic rami and ischium. Periostitis involves the posterior aspect of the left iliac wing with ill-defined cortical lucency of the anterior iliac bone (image 269). Deep tissue air is noted within the complex left hip joint effusion extending into the adjacent gluteal and proximal thigh musculature compatible with gas forming organism. Ill-defined sclerosis involves the S1 vertebral segment should be evaluated on follow-up to exclude additional site of osteomyelitis. IMPRESSION: 1. Prostamegaly with urinary bladder wall thickening suggestive of chronic out let obstruction. Air within the urinary bladder wall and perivesicular tissues is again noted without extravasation of contrast identified to delineate a focal urinary bladder wall injury. Follow-up with urology recommended. 2. Contrast within the tissues posterior lateral to the prostatic urethra is suggestive of reflux into the prostatic and ejaculatory ducts. 3. Left hip septic arthropathy with considerable osteomyelitis/bone necrosis of the left acetabulum, left iliac bone and proximal left femur results in articular bony destruction with femoral acetabular subluxation. Additional air within the medullary space of the ischium, superior and inferior pubic rami and partially imaged diaphyseal left femur is suggestive of additional osteonecrosis. Urgent orthopedic surgical consultation is needed. ACT 112: Negative or not required by law. The above report was generated using voice recognition software. It may contain grammatical, syntax or spelling errors. Electronically signed by: Doe Atkinson M.D. 08/09/2021 9:18 PM Dictated:08/09/212052 Transcribed: 08/09/212052 CT head/brain wo con CLINICAL HISTORY: 70 years-old Male with fall, confusion. Acute head injury status post fall. TECHNIQUE: Multiple axial CT images of the head were obtained without contrast. A dose lowering technique was utilized adhering to the principles of ALARA. CT DOSE: 884.08 mGy.cm COMPARISON: Head CT 02/01/2021 FINDINGS: No acute intracranial hemorrhage, midline shift, intracranial mass, hydrocephalus, territorial ischemia or abnormal extra-axial collection. Mild involutional changes. White matter hypodensities suggest chronic microvascular ischemic disease. The calvarium is intact. The paranasal sinuses, mastoid air cells, and middle ear cavities are clear. IMPRESSION: No acute intracranial abnormality or calvarial fracture. ACT 112: Negative or not required by law. The above report was generated using voice recognition software. It may contain grammatical, syntax or spelling errors. Electronically signed by: Doe Atkinson M.D. 08/09/2021 5:39 PM Dictated:08/09/211735 Transcribed: 08/09/211735 XR chest 1V portable HISTORY: 70 years-old Male SEPSIS acute sepsis COMPARISON: Chest radiograph 01/31/2021 TECHNIQUE: Portable AP view of the chest FINDINGS: Cardiomediastinal and hilar silhouettes are within normal limits. No pneumothorax, large pleural effusion or overt pulmonary edema. There are subtle subsegmental opacities of the left lung base. Mild right hemidiaphragmatic elevation. Degenerative changes of the shoulders and spine. Healed chronic right-sided rib fractures. Mild subcutaneous edema of the left clavicular tissues with question deep tissue air versus artifact surrounding the right shoulder. IMPRESSION: 1. Mild left lung base opacities may represent atelectasis versus pneumonitis. 2. Trace subcutaneous emphysema of the left supraclavicular tissues with artifact versus deep tissue air superior to the right shoulder. Correlate with physical exam findings. ACT 112: Negative or not required by law. The above report was generated using voice recognition software. It may contain grammatical, syntax or spelling errors. Electronically signed by: Doe Atkinson M.D. 08/09/2021 5:04 PM Dictated:08/09/211699 Transcribed: 08/09/211699 ABDOMEN AND PELVIS CT WITHOUT CONTRAST CT DOSE: 1425.66 mGy.cm HISTORY: Acute lower abdominal pain status post fall poss urinary obstruction TECHNIQUE: Multiaxial CT images of the abdomen and pelvis were performed without contrast. A dose lowering technique was utilized adhering to the principles of ALARA. COMPARISON STUDY: Chest radiograph of same day FINDINGS: Trace pleural effusions. Mild bibasilar bronchial wall thickening with subsegmental opacities suggestive of probable atelectasis. The study is limited secondary to upper extremity positioning, lack of IV contrast and respiratory motion artifact. The unenhanced spleen is enlarged measuring up to 16.5 cm in [facility]. Unremarkable pancreas and adrenal glands. Cholecystectomy. Marginal nodularity of the liver suggestive of cirrhosis. Calcified granulomata of the right hepatic lobe. Hepatic steatosis. Probable cyst of the superior pole right kidney measures 9 mm. There are a few nonobstructing calculi of the inferior pole right kidney measuring up to 4 mm. 1.6 cm calculus of the left renal pelvis results in mild hydronephrosis. There are a few additional nonobstructing calculi left kidney measuring up to 1.2 cm. Small amount of air is noted within the left renal collecting system and proximal left ureter. A Becerril catheter is noted within the urinary bladder which is filled with air. Extraluminal air surrounds the urinary bladder. The tip of the catheter tents the anterior urinary bladder dome. Mild perivesicular stranding is noted in addition to mild prostamegaly. Atherosclerosis of the aorta. No adenopathy. There is also within the left femoral veins. There is no bowel obstruction or bowel wall thickening. Colonic diverticulosis without acute diverticulitis. Normal appendix. 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 Osseous erosions with bony destruction involves the left femoral acetabular joints resolving in associated subluxation. Numerous bone fragments are noted along the superior margin of the left hip with adjacent periostitis. Osseous necrosis is noted with considerable amount of air within the proximal left hip medullary space and also within the medullary space of the left acetabulum extending into the superior and inferior pubic rami and ischium. Periostitis involves the posterior aspect of the left iliac wing with ill-defined cortical lucency of the anterior iliac bone (image 269). Deep tissue air is noted within the complex left hip joint effusion extending into the adjacent gluteal and proximal thigh musculature compatible with gas forming organism. Ill-defined sclerosis involves the S1 vertebral segment should be evaluated on follow-up to exclude additional site of osteomyelitis. IMPRESSION: 1. Left hip septic arthropathy with considerable osteomyelitis/bone necrosis of the left acetabulum, left iliac bone and proximal left femur results in articular bony destruction with femoral acetabular subluxation. Additional air within the medullary space of the ischium, superior and inferior pubic rami and partially imaged diaphyseal left femur is suggestive of additional osteonecrosis.Urgent orthopedic surgical consultation is needed. 2. Heterogeneous enlargement with heterogeneity of the left grinder operator tool internus, gluteal and proximal left thigh musculature is suggestive of associated myositis and/or myonecrosis. 3. A Becerril catheter is in place with an air-filled urinary bladder. A large amount of perivesicular air is compatible with an acute urinary bladder wall injury. 4. Mild left-sided hydronephrosis secondary to a 1.6 cm calculus of the left renal pelvis. 5. Nonobstructing bilateral nephrolithiasis. 6. Cirrhotic liver. 7. Trace pleural effusions. 8. Additional findings as above. ACT 112: Negative or not required by law. The above report was generated using voice recognition software. It may contain grammatical, syntax or spelling errors. Electronically signed by: Doe Atkinson M.D. 08/09/2021 6:09 PM Dictated:08/09/211740 Transcribed: 08/09/211740 (1) Sepsis Acute renal failure type: unspecified Sepsis acute organ dysfunction status: with acute organ dysfunction Sepsis type: sepsis due to unspecified organism Severe sepsis acute organ dysfunction type: acute renal failure Severe sepsis shock status: with septic shock Qualified Code(s): A41.9 - Sepsis, unspecified organism; R65.21 - Severe sepsis with septic shock; N17.9 - Acute kidney failure, unspecified (2) Hypotension Hypotension type: unspecified hypotension type Qualified Code(s): I95.9 - Hypotension, unspecified
[2021-08-09] MEDS ORDERED: MEROPENEM 500 MG in SYRINGE 0 ML IV SCH (20:15)
[2021-08-09] MEDS ORDERED: SODIUM CHLORIDE 0.9% 500 ML IV SCH (20:15)
--- NOTE | 2021-08-09 21:20 | CT Scan Report ---
CT pelvis wo con HISTORY: 70 years-old Male bladder rupture, cystogram via becerril follow-up study in a patient with po ssible urinary bladder rupture COMPARISON: CT abdomen and pelvis of same day at 5:29 PM TECHNIQUE: Multiple axial CT images of the pelvis were obtained without the use of IV contrast. A tot al of 400 mL Cysto-Conray was injected through the patient's Becerril catheter into the urinary bladder and images were then obtained post injection. A dose lowering technique was used consistent with the principals of JOHN. FINDINGS: Technologist reports that is contrast was injected into the urinary bladder it flowed outside the cat heter into the urethra and subsequently no more contrast was able to be injected. Partial distention of the urinary bladder with Becerril catheter in place. There is a small amount of ai r within the urinary bladder lumen. Air is present within the urinary bladder wall extending into the perivesicular tissues, notably into the space of Retzius. There is symmetric progressive accumulatio n of contrast within the posterior posterolateral periprosthetic tissues as seen on image 190 of seri es 5. There is prostamegaly with urinary bladder wall thickening. No definite focal area of urinary b ladder wall injury identified. No spilling of contrast into the peritoneal space. There is no bowel obstruction or bowel wall thickening. Colonic diverticulosis without acute divertic ulitis. Normal appendix. 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 Osseous erosions with bony destruction involves the left femoral acetabular joints resolving in asso ciated subluxation. Numerous bone fragments are noted along the superior margin of the left hip with adjacent periostitis. Osseous necrosis is noted with considerable amount of air within the proximal l eft hip medullary space and also within the medullary space of the left acetabulum extending into the superior and inferior pubic rami and ischium. Periostitis involves the posterior aspect of the left iliac wing with ill-defined cortical lucency of the anterior iliac bone (image 269). Deep tissue air is noted within the complex left hip joint effusion extending into the adjacent gluteal and proximal thigh musculature compatible with gas forming organism. Ill-defined sclerosis involves the S1 vertebr al segment should be evaluated on follow-up to exclude additional site of osteomyelitis. IMPRESSION: 1. Prostamegaly with urinary bladder wall thickening suggestive of chronic outlet obstruction. Air wi thin the urinary bladder wall and perivesicular tissues is again noted without extravasation of contr ast identified to delineate a focal urinary bladder wall injury. Follow-up with urology recommended. 2. Contrast within the tissues posterior lateral to the prostatic urethra is suggestive of reflux int o the prostatic and ejaculatory ducts. 3. Left hip septic arthropathy with considerable osteomyelitis/bone necrosis of the left acetabulum, left iliac bone and proximal left femur results in articular bony destruction with femoral acetabular subluxation. Additional air within the medullary space of the ischium, superior and inferior pubic r ami and partially imaged diaphyseal left femur is suggestive of additional osteonecrosis. Urgent orth opedic surgical consultation is needed. ACT 112: Negative or not required by law. The above report was generated using voice recognition software. It may contain grammatical, syntax o r spelling errors. Electronically signed by: Doe Atkinson M.D. 08/09/2021 9:18 PM
--- NOTE | 2021-08-09 21:28 | Communication Note ---
Date of Service: August 09, 2021 Patient became unresponsive, bradycardic, had agonal respiration upon return from CT around 9 PM as per RN. No CPR done due to prior DNR directives. Patient pronounced by ER provider (Dr. Lloyd) at 9:07 PM. Neuro Urologist to be notified of patient demise as patient within 24 hours of admission. Family not interested in autopsy procedure as per conversation. Discharge summary and certificate to be completed by Dr. Acevedo.
--- NOTE | 2021-08-10 00:54 | Emergency Department Note ---
ED Visit Note This patient was seen inittially by Dr. Marin as well as the [facility] team. When I went by the patient's room on the way to see another patient, the nurse asked me to see the patient. He had just gotten back from his imaging and became unresponsive with agonal respirations with bradycardia. I had talked to Dr. Marin about the case at sign out and was aware of the situation. The patient was critically ill and was admitted by [facility] and was DO NOT RESUSCITATE as per the patient's and family's wish after having a long discussion with them. I confirmed this with the nurses. We went and got the family. In the meantime, the patient went asystolic and had no respirations and . I talked to the family at length and also Dr. Alexis from the [facility] team. . : Hypotension Qualifiers: Hypotension type: unspecified hypotension type Qualified Code(s): I95.9 - Hypotension, unspecified Sepsis Qualifiers: Sepsis type: sepsis due to unspecified organism Sepsis acute organ dysfunction status: with acute organ dysfunction Severe sepsis acute organ dysfunction type: acute renal failure Acute renal failure type: unspecified Severe sepsis shock status: with septic shock Qualified Code(s): A41.9 - Sepsis, unspecified or ganism ARF (acute renal failure) Qualifiers: Acute renal failure type: unspecified Qualified Code(s): N17.9 - Acute kidney failure, unspecified
--- NOTE | 2021-08-11 07:29 | Electrocardiogram Report ---
Test Reason : Blood Pressure : / mmHG Vent. Rate : 129 BPM Atrial Rate : 129 BPM P-R Int : 150 ms QRS Dur : 086 ms QT Int : 296 ms P-R-T Axes : 072 052 063 degrees QTc Int : 433 ms Sinus tachycardia Otherwise normal ECG When compared with ECG of 11-APR-2021 09:54, No significant change was found Confirmed by Adi Hawthorne ([id number]) on 08/11/2021 7:28:48 AM Referred By: REFERRED SELF Confirmed By:Adi Hawthorne
--- NOTE | 2021-08-20 00:46 | Discharge Summary ---
Date of Service August 10, 2021 Admission HPI Per Admitting Provider 70-year-old male with PMH of COPD, HTN, Hypothyroidism, gout, GUILLERMO, Left hip replacement 3 months ago who presents to the ER with worsening lethargy.History obtained from daughter at bedside. As per daughter in the last 48hrs pt has been very lethargy and became less response. Daughter said that pt had left knee surgery done 3 months ago that helped with his left knee pain. Daughter said that pt has been having left hip pain for the past 2 years. He was seen by [facility] that referred him to Orthopedic in [place]. Daughter said that due to COVID 19 they could not get the surgery schedule because he would have to stay in the hopital overnight after the procedure. Daughter said ortho in [place] recommended to call back in 3 months to try to get the procedure schedule. Daughter said they were at the [facility] to get eval for wheelchair. Daughter said after the appointment, his left hip pain has got worse. She said patient rolled out of bed to the ground on Wednesday. daughter said that pt has been having increase urinary frequency. His symptoms started worsening last night where he became very lethargy, less responsive and his speech was gargled with difficulty to understand. He was able to deny any chest pain, palpitation and SOB. EMS was called as he became worsening. In the ER he was found to be hypotensive with systolic BP in 60's, elevated lactic acid, creatinine, WBC with procalcitonin 32.7. GENERAL: No fever or chills, easy fatigue, loss of appetite, or significant weight change. Admission Exam Per Admitting Provider General- acute distress Head- atraumatic Eyes- PERRL, EOMI, ENT- oropharynx clear Neck- supple, no JVD Lungs- diminished BS Heart- Tachycardia, no murmur Abdomen- normal bowel sounds Extremities- no calf tenderness Neuro-Confused, lethargic, does move all extremities.speech gargle Skin- warm & dry Principal Diagnosis Sepsis: Hypotension: Hypoxia Acute kidney failure Left-sided hydronephrosis Encephalopathy Lethargy Abnormal UA GUILLERMO Discharge Exam unresponsive with agonal respirations with bradycardia, asystolic and had no respirations and . Discharge Data Allergies Allergy/AdvReac Type Severity Reaction Status Date / Time amoxicillin Allergy Intermediate Hives Verified 08/09/21 17:44 Penicillins Allergy Intermediate HIVES;RASH,THROAT Verified 08/09/21 17:44 SWELLING Consultations 08/09/21 17:12 ED Decision to Admit Stat Ordered Studies 08/09/21 16:08 CT abd pelvis wo con Stat CT head/brain wo con Stat 08/09/21 18:46 CT pelvis wo con Stat CT pelvis wo con HISTORY: 70 years-old Male bladder rupture, cystogram via becerril follow-up study in a patient with possible urinary bladder rupture COMPARISON: CT abdomen and pelvis of same day at 5:29 PM TECHNIQUE: Multiple axial CT images of the pelvis were obtained without the use of IV contrast. A total of 400 mL Cysto-Conray was injected through the patient's Becerril catheter into the urinary bladder and images were then obtained post injection. A dose lowering technique was used consistent with the principals of JOHN. FINDINGS: Technologist reports that is contrast was injected into the urinary bladder it flowed outside the catheter into the urethra and subsequently no more contrast was able to be injected. Partial distention of the urinary bladder with Becerril catheter in place. There is a small amount of air within the urinary bladder lumen. Air is present within the urinary bladder wall extending into the perivesicular tissues, notably into the space of Retzius. There is symmetric progressive accumulation of contrast within the posterior posterolateral periprosthetic tissues as seen on image 190 of series 5. There is prostamegaly with urinary bladder wall thickening. No definite focal area of urinary bladder wall injury identified. No spilling of contrast into the peritoneal space. There is no bowel obstruction or bowel wall thickening. Colonic diverticulosis without acute diverticulitis. Normal appendix. 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 Osseous erosions with bony destruction involves the left femoral acetabular joints resolving in associated subluxation. Numerous bone fragments are noted along the superior margin of the left hip with adjacent periostitis. Osseous necrosis is noted with considerable amount of air within the proximal left hip medullary space and also within the medullary space of the left acetabulum extending into the superior and inferior pubic rami and ischium. Periostitis involves the posterior aspect of the left iliac wing with ill-defined cortical lucency of the anterior iliac bone (image 269). Deep tissue air is noted within the complex left hip joint effusion extending into the adjacent gluteal and proximal thigh musculature compatible with gas forming organism. Ill-defined sclerosis involves the S1 vertebral segment should be evaluated on follow-up to exclude additional site of osteomyelitis. IMPRESSION: 1. Prostamegaly with urinary bladder wall thickening suggestive of chronic outlet obstruction. Air within the urinary bladder wall and perivesicular tissues is again noted without extravasation of contrast identified to delineate a focal urinary bladder wall injury. Follow-up with urology recommended. 2. Contrast within the tissues posterior lateral to the prostatic urethra is suggestive of reflux into the prostatic and ejaculatory ducts. 3. Left hip septic arthropathy with considerable osteomyelitis/bone necrosis of the left acetabulum, left iliac bone and proximal left femur results in articular bony destruction with femoral acetabular subluxation. Additional air within the medullary space of the ischium, superior and inferior pubic rami and partially imaged diaphyseal left femur is suggestive of additional osteonecrosis. Urgent orthopedic surgical consultation is needed. ACT 112: Negative or not required by law. The above report was generated using voice recognition software. It may contain grammatical, syntax or spelling errors. Electronically signed by: Doe Atkinson M.D. 08/09/2021 9:18 PM Dictated:08/09/212052 Transcribed: 08/09/212052 CT head/brain wo con CLINICAL HISTORY: 70 years-old Male with fall, confusion. Acute head injury status post fall. TECHNIQUE: Multiple axial CT images of the head were obtained without contrast. A dose lowering technique was utilized adhering to the principles of ALARA. CT DOSE: 884.08 mGy.cm COMPARISON: Head CT 02/01/2021 FINDINGS: No acute intracranial hemorrhage, midline shift, intracranial mass, hydrocephalus, territorial ischemia or abnormal extra-axial collection. Mild involutional changes. White matter hypodensities suggest chronic microvascular ischemic disease. The calvarium is intact. The paranasal sinuses, mastoid air cells, and middle ear cavities are clear. IMPRESSION: No acute intracranial abnormality or calvarial fracture. ACT 112: Negative or not required by law. The above report was generated using voice recognition software. It may contain grammatical, syntax or spelling errors. Electronically signed by: Doe Atkinson M.D. 08/09/2021 5:39 PM Dictated:08/09/211735 Transcribed: 08/09/211735 XR chest 1V portable HISTORY: 70 years-old Male SEPSIS acute sepsis COMPARISON: Chest radiograph 01/31/2021 TECHNIQUE: Portable AP view of the chest FINDINGS: Cardiomediastinal and hilar silhouettes are within normal limits. No pneumothor ax, large pleural effusion or overt pulmonary edema. There are subtle subsegmental opacities of the left lung base. Mild right hemidiaphragmatic elevation. Degenerative changes of the shoulders and spine. Healed chronic right-sided rib fractures. Mild subcutaneous edema of the left clavicular tissues with question deep tissue air versus artifact surrounding the right shoulder. IMPRESSION: 1. Mild left lung base opacities may represent atelectasis versus pneumonitis. 2. Trace subcutaneous emphysema of the left supraclavicular tissues with artifact versus deep tissue air superior to the right shoulder. Correlate with physical exam findings. ACT 112: Negative or not required by law. The above report was generated using voice recognition software. It may contain grammatical, syntax or spelling errors. Electronically signed by: Doe Atkinson M.D. 08/09/2021 5:04 PM Dictated:08/09/21 1700 Transcribed: 08/09/[address] WITHOUT CONTRAST CT DOSE: 1425.66 mGy.cm HISTORY: Acute lower abdominal pain status post fall poss urinary obstruction TECHNIQUE: Multiaxial CT images of the abdomen and pelvis were performed without contrast. A dose lowering technique was utilized adhering to the principles of ALARA. COMPARISON STUDY: Chest radiograph of same day FINDINGS: Trace pleural effusions. Mild bibasilar bronchial wall thickening with subsegmental opacities suggestive of probable atelectasis. The study is limited secondary to upper extremity positioning, lack of IV contrast and respiratory motion artifact. The unenhanced spleen is enlarged measuring up to 16.5 cm in length. Unremarkable pancreas and adrenal glands. Cholecystectomy. Marginal no dularity of the liver suggestive of cirrhosis. Calcified granulomata of the right hepatic lobe. Hepatic steatosis. Probable cyst of the superior pole right kidney measures 9 mm. There are a few nonobstructing calculi of the inferior pole right kidney measuring up to 4 mm. 1.6 cm calculus of the left renal pelvis results in mild hydronephrosis. There are a few additional nonobstructing calculi left kidney measuring up to 1.2 cm. Small amount of air is noted within the left renal collecting system and proximal left ureter. A Becerril catheter is noted within the urinary bladder which is filled with air. Extraluminal air surrounds the urinary bladder. The tip of the catheter tents the anterior urinary bladder dome. Mild perivesicular stranding is noted in addition to mild prostamegaly. Atherosclerosis of the aorta. No adenopathy. There is also within the left femoral veins. There is no bowel obstruction or bowel wall thickening. Colonic diverticulosis without acute diverticulitis. Normal appendix. 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 Osseous erosions with bony destruction involves the left femoral acetabular joints resolving in associated subluxation. Numerous bone fragments are noted along the superior margin of the left hip with adjacent periostitis. Osseous necrosis is noted with considerable amount of air within the proximal left hip medullary space and also within the medullary space of the left acetabulum extending into the superior and inferior pubic rami and ischium. Periostitis involves the posterior aspect of the left iliac wing with ill-defined cortical lucency of the anterior iliac bone (image 269). Deep tissue air is noted within the complex left hip joint effusion extending into the adjacent gluteal and proximal thigh musculature compatible with gas forming organism. Ill-defined sclerosis involves the S1 vertebral segment should be evaluated on follow-up to exclude additional site of osteomyelitis. IMPRESSION: 1. Left hip septic arthropathy with considerable osteomyelitis/bone necrosis of the left acetabulum, left iliac bone and proximal left femur results in articular bony destruction with femoral acetabular subluxation. Additional air within the medullary space of the ischium, superior and inferior pubic rami and partially imaged diaphyseal left femur is suggestive of additional osteonecrosis.Urgent orthopedic surgical consultation is needed. 2. Heterogeneous enlargement with heterogeneity of the left ammonia still operator internus, gluteal and proximal left thigh musculature is suggestive of associated myositis and/or myonecrosis. 3. A Becerril catheter is in place with an air-filled urinary bladder. A large amount of perivesicular air is compatible with an acute urinary bladder wall injury. 4. Mild left-sided hydronephrosis secondary to a 1.6 cm calculus of the left renal pelvis. 5. Nonobstructing bilateral nephrolithiasis. 6. Cirrhotic liver. 7. Trace pleural effusions. 8. Additional findings as above. ACT 112: Negative or not required by law. The above report was generated using voice recognition software. It may contain grammatical, syntax or spelling errors. Electronically signed by: Doe Atkinson M.D. 08/09/2021 6:09 PM Dictated:08/09/211740 Transcribed: 08/09/211740 Hospital Course (1) Sepsis: (2) Hypotension: Possible related to septic arthritis/osteomyelitis Met sepsis criteria on admission with elevated lactic acid at 2.9, WBC 18.7, tachycardia, elevated procalcitonin at 32.[address] abd/pelvis showed Left hip septic arthropathy with considerable osteomyelitis/bone necrosis of the left acetabulum, left iliac bone and proximal left femur results in articular bony destruction with femoral acetabular subluxation. Additional air within the medullary space of the ischium, superior and inferior pubic rami and partially imaged diaphyseal left femur is suggestive of additional osteonecrosis Heterogeneous enlargement with heterogeneity of the left ammonia still operator internus, gluteal and proximal left thigh musculature is suggestive of associated myositis and/or myonecrosis. in the ER Received aggressive IV fluid with 30 mL/kg ( total of 3.5 L of IV NSS bolus given) and IV levaquin BP improved after the IV fluid bolus Blood culture and urine culture collected in the ER Case discussed with orthopedic Dr. Martino. After he reviewed the CT abdomen/pelvis that suspicious for gas-forming organism Ortho recommended to transfer to tertiary center for urgent surgical procedure Spoke to daughter at bedside about transfer to tertiary center to undergo extensive left hip surgery Daughter understand if pt remains at [facility] that he will because he will go to septic shock Daughter said that she would discuss it with the family before making any decision about transfer since she does not want any heroic management Daughter said that her and the rest of the family decided to keep him at [facility] since they don't think he would survive the procedure and pt does not want to be on mechanical ventilation. I again informed the daughter if he does not transfer to a tertiary care that he will . final decision from the daughter to stay at [facility] and if he deteriorates or his worsening to transition to comfort care. Continue IV fluid maintenance at 100 cc/hr Meropenem started and will continue IV Levaquin for now We will follow urine and blood culture result Orthopedic consult Will repeat Lactic acid We will check inflammatory markers such as ESR and CRP in a.m. We will monitor CBC and procalcitonin level in a.m. Hypoxia Chest x-ray showed mild left lung base opacities may represent atelectasis versus pneumonitis. COVID-19, RSV, influenza A and B are negative ABG showed pH 7.29/PCO2 47/PO2 104/ Currently on 4 L nasal cannula On IV Levaquin and meropenem Acute kidney failure Likely due to sepsis and dehydration CT abdomen/pelvis sowed a becerril catheter is in place with an air-filled urinary bladder. A large amount of perivesicular air is compatible with an acute urinary bladder wall injury. Mild left-sided hydronephrosis secondary to a 1.6 cm calculus of the left renal pelvis. Lisinopril, Metformin and furosemide on hold Continue to avoid nephrotoxic agent Continue IV fluid Monitor BMP Left-sided hydronephrosis Urinary bladder wall injury CT showed large amount of perivesicular air is compatible with an acute urinary bladder wall injury. Mild left-sided hydronephrosis secondary to a 1.6 cm calculus of the left renal pelvis. ER physician discussed the case with the urology on-call recommend to get a cystogram Urology consult Encephalopathy Lethargy Likely due to sepsis CT head showed no acute intracranial abnormality No focal neuro deficit Continue monitor closely Abnormal UA UA positive for WBC and bacteria Received IV Levaquin in the ER Started on meropenem and continue Levaquin We will follow urine culture and blood culture Hypotension Related to sepsis Received IV fluid bolus in the ER Continue to hold BP meds Monitor BP closely GUILLERMO Continue CPAP at night DVT prophylaxis Heparin subcu CODE STATUS DNR Daughter does not want any heroic management If patient deteriorates, plan to transition to comfort care as per daughter Addendum Patient became unresponsive, bradycardic, had agonal respiration upon return from CT around 9 PM as per RN. No CPR done due to prior DNR directives. Patient pronounced by ER provider (Dr. Lloyd) at 9:07 PM. General Claims Agent to be notified of patient demise as patient within 24 hours of admission. Family not interested in autopsy procedure as per conversation. Total Time Total Time Spent Total Time Spent (In Minutes): 15 minutes Discharge Plan Discharge Items Patient Disposition: Other Date/Time: 08/09/21 21:07
== END 2021-08-09 23:00 | disposition expired | DRG 871 ==
LOC: ED 15:47 → EDINP 19:57 → ED 22:15 → EDINP 22:15